=== PATIENT | female | born 1990 | race Caucasian/White ===

== ENCOUNTER → 2016-11-05 | Outpatient (CLI) | payer BC ==
--- NOTE | 2016-11-05 08:17 | RAD ---
Thyroid ultrasound, 11/05/2016: History: Thyromegaly The right lobe of the gland measures 4.4 x 1.3 x 1.2 cm while the left lobe of the gland measures 4.1 x 1.0 x 1.1 cm. The thyroid echo pattern is slightly heterogeneous. No discrete thyroid mass is seen. IMPRESSION: No significant abnormality is detected.
== END | disposition home or self-care (01) ==
LOC: US 07:12
PROVIDERS: ATTEND Family Medicine
DX: E01.0 Iodine-deficiency related diffuse (endemic) goiter (principal)
CPT/HCPCS: 76536